=== PATIENT | male | born 1955 | race Caucasian/White ===

== ENCOUNTER 2019-05-09 18:00 | Emergency (ER) | payer MEDICARE, OTHER ==
--- NOTE | 2019-05-09 18:25 | ERPHSYRPT ---
- History of Present Illness Time Seen by Provider: 05/09/19 18:15 Source: patient Exam Limitations: no limitations Physician History: 64 y/o right handed white male presents with accidental laceration to palmar aspect to left hand. pt was using a utility knife to cut plastic. pts tetanus not utd. Timing/Duration: today Quality: painful (mild) Severity: mild Location: hands (left hand palm laceration) Possible Causes: other (accidental cut with utility knife) Associated Symptoms: denies symptoms - Review of Systems Constitutional: No Symptoms Eyes: No Symptoms Ears, Nose, & Throat: No Symptoms Respiratory: No Symptoms Cardiac: No Symptoms Abdominal/Gastrointestinal: No Symptoms Genitourinary Symptoms: No Symptoms Musculoskeletal: No Symptoms Skin: Other (laceration left palm) Neurological: No Symptoms Psychological: No Symptoms Endocrine: No Symptoms Hematologic/Lymphatic: No Symptoms Immunological/Allergic: No Symptoms All Other Systems: Reviewed and Negative - Past Medical History Neurological History: No Pertinent History ENT History: No Pertinent History Cardiac History: No Pertinent History Respiratory History: No Pertinent History Endocrine Medical History: No Pertinent History Musculoskeletal History: No Pertinent History GI Medical History: No Pertinent History History: No Pertinent History Psycho-Social History: No Pertinent History Male Reproductive Disorders: No Pertinent History - Past Surgical History Neuro Surgical History: No Pertinent History Cardiac: No Pertinent History Respiratory: No Pertinent History Gastrointestinal: No Pertinent History Genitourinary: No Pertinent History Musculoskeletal: No Pertinent History Male Surgical History: No Pertinent History - Nursing Vital Signs Nursing Vital Signs: Initial Vital Signs Temperature 97.6 F 05/09/19 18:10 Pulse Rate 87 05/09/19 18:10 Respiratory Rate 18 05/09/19 18:10 Blood Pressure 143/85 05/09/19 18:10 O2 Sat by Pulse Oximetry 95 05/09/19 18:10 Pain Scale Pain Intensity 0 - Physical Exam General Appearance: no apparent distress, alert, anxiety Eye Exam: PERRL/EOMI, eyes nml inspection Ears, Nose, Throat Exam: normal ENT inspection, moist mucous membranes Neck Exam: normal inspection, non-tender, supple, full range of motion Respiratory Exam: No chest tenderness Gastrointestinal/Abdomen Exam: No tenderness Rectal Exam: not done Back Exam: normal inspection, normal range of motion, No CVA tenderness, No vertebral tenderness Extremity Exam: normal range of motion, pelvis stable, lacerations (2.5cm left prox left palm. no fb and no active bleeding. nv intact. tendon intact) Neurologic Exam: alert, oriented x 3, cooperative, weapons engineer II-XII nml as tested, normal mood/affect, nml cerebellar function Skin Exam: laceration (see above) Lymphatic Exam: No adenopathy SpO2 Interpretation: normal O2 Delivery: Room Air Procedures - Laceration/Wound Repair Left Proximal Volar Hand Wound Location: Left, hand Wound Length (cm): 2.5 Wound's Depth, Shape: superficial, linear Wound Explored: in bloodless field Irrigated: Yes Hibiclens Prep: Yes Wound Repaired With: Steri-strips, Dermabond - Course Nursing assessment & vital signs reviewed: Yes Ordered Tests: Active Orders 24 hr Category Date Time Status Wound Care STAT Care 05/09/19 18:25 Active Medication Summary Generic Name Dose Route Start Last Admin Trade Name Freq PRN Reason Stop Dose Admin Diphtheria/Tetanus/Acell Pertussis 0.5 ml 05/09/19 18:27 Adacel Vial IM 05/09/19 18:28 .ONCE ONE - Progress Progress: improved Counseled pt/family regarding: diagnosis - Departure Departure Disposition: Home Clinical Impression: Laceration of left hand Condition: Stable Critical Care Time: No Referrals: STEVIE LEI [Primary Care Provider] - Additional Instructions: keep current dressing in place for 24 hours. after 24 hours, may remove top dressing. leave steristrips in place. wash daily after 24 hours with soap and water.
[2019-05-09] MEDS ORDERED: Adacel Vial IM ONE ×2 (18:27→18:31)
[2019-05-09 19:04] VITALS: BP 142/87; PULSE 82; O2SAT 93
== END 2019-05-09 19:05 | disposition home or self-care (01) ==
LOC: ED 18:00
DX: S61.412A Laceration without foreign body of left hand, initial encounter (principal); W26.0XXA Contact with knife, initial encounter
CPT/HCPCS: 12001; 90471; 90715; 99283